=== PATIENT | male | born 1970 | race Caucasian/White ===

== ENCOUNTER → 2017-10-06 | Outpatient (CLI) | payer OTHER ==
[2017-10-06 13:25] LABS: Basophils % (A) 0 %; CH 30.4; CHCM 32.6; Eosinophils # (A) 0.2 k/uL (0-0.7); Eosinophils % (A) 2 %; HCT 50.6 % (39.0-53.0); HDW 2.45; HGB 16.3 gm/dL (13.0-17.5); Luc # (Auto) 0.04; Luc % (Auto) 1; Lymphocytes # (A) 1.3 k/uL (1.0-4.8); Lymphocytes % (A) 18 %; MCH 30.1 pg (25.0-35.0); MCHC 32.2 g/dL (31.0-37.0); MCV 93.6 fL (80.0-100.0); Mean Platelet Volume 8.5; Monocytes # (A) 0.4 k/uL (0-1.0); Monocytes % (A) 5 %; Neutrophils # (A) 5.1 k/uL (1.3-7.7); Neutrophils % (A) 73 %; RBC 5.41 m/uL (4.30-5.90); RDW 14.2 % (11.5-15.5); WBC (Perox) 6.86
[2017-10-06 13:40] LABS: Blood Urea Nitrogen 16 mg/dL (9-20); Non-African American GFR(MDRD) >60 (>60 ml/min/1.73 sqM)
[2017-10-06 20:06] LABS: ANA w/Reflex to Titer NEGATIVE (NEGATIVE)
[2017-10-07 11:24] LABS: Lyme IgG/IgM 0.1 Index; Lyme IgG/IgM Interp NEGATIVE (NEGATIVE)
[2017-10-07 11:30] LABS: Rheumatoid Factor <4 IU/mL (0-15)
== END | disposition home or self-care (01) ==
LOC: LABWHC1 12:38
PROVIDERS: ATTEND Psychiatry & Neurology Neurology
DX: R41.3 Other amnesia (principal)
CPT/HCPCS: 36415; 82306; 82565; 82607; 82746; 84439; 84443; 84481; 84520; 85025; 86038; 86225; 86431; 86618

== ENCOUNTER → 2019-07-30 | Outpatient (CLI) | payer BC ==
--- NOTE | 2019-07-30 14:22 | XR ---
EXAMINATION TYPE: XR ankle complete bilateral DATE OF EXAM: 07/30/2019 CLINICAL HISTORY: Bilateral anterior distal tibial pain for 2 weeks with no known injury. TECHNIQUE: Frontal, lateral and oblique images of the bilateral ankles were obtained. COMPARISON: None. FINDINGS: There is no acute fracture/dislocation evident in either ankle. The ankle mortise appears within normal limits. On the right there is a moderate plantar heel spur. On the left there is a sma ll Achilles heel spur. No radiopaque foreign body. Small phleboliths are noted on the left. The over lying soft tissue appears unremarkable. IMPRESSION: There is no acute fracture or dislocation in either ankle. Moderate right plantar heel s pur and small left Achilles heel spur.
== END | disposition home or self-care (01) ==
LOC: RADXRYALE 13:12
PROVIDERS: ATTEND Internal Medicine
DX: M77.51 Other enthesopathy of right foot and ankle (principal)

== ENCOUNTER → 2020-06-21 | Outpatient (CLI) | payer BC | END | disposition home or self-care (01) | LOC: LABWHC1 12:41 | PROVIDERS: ATTEND Internal Medicine | DX: Z20.828 Contact with and (suspected) exposure to other viral communicable diseases (principal) | CPT/HCPCS: U0003; C9803 ==

== ENCOUNTER → 2020-09-21 | Outpatient (CLI) | payer BC | END | disposition home or self-care (01) | LOC: LABWHC1 08:20 | PROVIDERS: ATTEND Internal Medicine | DX: Z20.828 Contact with and (suspected) exposure to other viral communicable diseases (principal) | CPT/HCPCS: U0003; C9803 ==

== ENCOUNTER → 2021-01-31 | Outpatient (CLI) | payer BC ==
--- NOTE | 2021-01-31 14:24 | XR ---
EXAMINATION TYPE: XR ankle complete LT DATE OF EXAM: 01/31/2021 COMPARISON: None HISTORY: Pain TECHNIQUE: Left ankle is examined in 3 views. FINDINGS: Ankle mortise is intact. No acute fracture or dislocation is evident. Soft tissues appear n ormal. Achilles tendon calcaneal heel spur is present. Follow up exams can be performed 7-10 days from acute trauma for continued pain. IMPRESSION: 1. No acute osseous abnormality left ankle
== END | disposition home or self-care (01) ==
LOC: RADXRYALE 08:29
PROVIDERS: ATTEND Internal Medicine
DX: M25.572 Pain in left ankle and joints of left foot (principal)

== ENCOUNTER → 2024-02-13 | Outpatient (CLI) | payer OTHER ==
[2024-02-13 12:59] LABS: African American GFR (CKD) >90 (>60 ml/min/1.73 sqM); Blood Urea Nitrogen 14 mg/dL (9-20); Non-African American GFR(CKD) >90 (>60 ml/min/1.73 sqM)
--- NOTE | 2024-02-19 18:21 | CT ---
EXAMINATION TYPE: CT angio chest CT DLP: 1125.3 mGycm, Automated exposure control for dose reduction was used. DATE OF EXAM: 02/13/2024 1:59 PM COMPARISON: None. CLINICAL INDICATION:Male, 53 years old with history of I71.20 THORACIC AORTIC ANEURYSM, WITHOUT RUPTU RE,; Thoracic aortic aneurysm w/o rupture. TECHNIQUE/CONTRAST: CTA scan of the thorax is performed first without and then with IV Contrast, patient injected with 10 0 mL of Isovue 370, MIP images are created and reviewed these are created on a separate workstation.. FINDINGS: Pulmonary Artery: There is no evidence for a filling defect within the pulmonary vasculature to sugge st acute pulmonary embolism. The pulmonary artery is of normal size. Lungs/Pleura: No evidence of focal consolidation, pleural effusion or pneumothorax. Densely calcified granuloma and calcified hilar lymph nodes indicating healed granulomatous disease. Airway: Large airways are patent. Heart: Heart is within normal limits for size. Mild to minimal calcific coronary artery disease. Vasculature: Chest above the aortic root the ascending thoracic aorta measures 4.2 cm. At the level o f the main pulmonary artery diameter is 4.4 cm. Just below the aortic arch the aorta is 4.8 cm the ao rtic arch is normal caliber 2.9 cm. The descending aorta just below the arch is 2.9 cm. The 3-D elaine ges confirm the 2-D findings. Mediastinum: No gross evidence of adenopathy. Musculoskeletal: No acute osseous abnormalities Soft Tissues: Unremarkable. Lower neck: No significant findings. Upper Abdomen: No significant findings. IMPRESSION: 1. No evidence of pulmonary embolism. 2. Ectatic aorta Follow up recommendations for incidental pulmonary nodules, if there are any, are per [employer] or [email or web address]. [email or web address].org/articles/[email or web address]?lang=us
== END | disposition home or self-care (01) ==
LOC: RADCTMAIN 12:07
PROVIDERS: ATTEND Internal Medicine Interventional Cardiology
DX: I77.810 Thoracic aortic ectasia (principal)
CPT/HCPCS: 82565; 84520; 71275; 36415; Q9967